=== PATIENT | male | born 1985 | race Caucasian/White ===

== ENCOUNTER 2016-07-03 09:17 | Emergency (ER) | payer SELFPAY ==
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
[2016-07-03] MEDS ORDERED: Permethrin 5% CREAM* 1 APPLIC TUBE TOPICAL ONE (10:02)
[2016-07-03 10:37] VITALS: BP 114/70
== END 2016-07-03 10:21 | disposition home or self-care (01) ==
LOC: ED 09:17
DX: B86 Scabies (principal); F17.210 Nicotine dependence, cigarettes, uncomplicated
CPT/HCPCS: 99281; A9270-GY

== ENCOUNTER 2016-07-04 09:49 | Emergency (ER) | payer SELFPAY ==
[2016-07-04 10:31] VITALS: BP 120/76
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
== END 2016-07-04 11:32 | disposition home or self-care (01) ==
LOC: UCEAST 09:49
DX: N34.2 Other urethritis (principal); Z20.2 Contact with and (suspected) exposure to infections with a predominantly sexual mode of transmission; F17.210 Nicotine dependence, cigarettes, uncomplicated
CPT/HCPCS: 87491; 87591; 99212; G0463

== ENCOUNTER 2016-07-06 18:37 | Emergency (ER) | payer MEDICAID ==
[2016-07-06] MEDS ORDERED: Permethrin 5% CREAM* 1 APPLIC TUBE TOPICAL ONE (20:01)
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
[2016-07-06 20:53] VITALS: BP 117/72
== END 2016-07-06 20:52 | disposition home or self-care (01) ==
LOC: ED 18:37
DX: B86 Scabies (principal); R21 Rash and other nonspecific skin eruption
CPT/HCPCS: 99281; A9270-GY

== ENCOUNTER 2016-07-15 13:30 | Emergency (ER) | payer MEDICAID ==
[2016-07-15 13:34] VITALS: BP 112/59
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
== END 2016-07-15 14:27 | disposition home or self-care (01) ==
LOC: ED 13:30
DX: B86 Scabies (principal); R21 Rash and other nonspecific skin eruption; F17.210 Nicotine dependence, cigarettes, uncomplicated
CPT/HCPCS: 99281

== ENCOUNTER 2017-01-22 23:30 | Emergency (ER) | payer SELFPAY ==
[2017-01-23] MEDS ORDERED: Cyclobenzaprine TAB* 10 MG PO ONE (00:11)
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
[2017-01-23 00:36] VITALS: BP 130/80
== END 2017-01-23 00:36 | disposition home or self-care (01) ==
LOC: ED 23:30
DX: M54.30 Sciatica, unspecified side (principal); M54.9 Dorsalgia, unspecified; F17.210 Nicotine dependence, cigarettes, uncomplicated
CPT/HCPCS: 99282; A9270-GY

== ENCOUNTER 2017-02-03 14:34 | Emergency (ER) | payer OTHER ==
[2017-02-03 14:39] VITALS: BP 122/62
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
== END 2017-02-03 16:18 | disposition home or self-care (01) ==
LOC: ED 14:34
DX: L01.00 Impetigo, unspecified (principal); F17.210 Nicotine dependence, cigarettes, uncomplicated
CPT/HCPCS: 36415; 86703; 99282

== ENCOUNTER 2017-02-04 01:20 | Emergency (ER) | payer OTHER ==
[2017-02-04 01:36] VITALS: BP 132/96
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
== END 2017-02-04 02:20 | disposition home or self-care (01) ==
LOC: ED 01:20
DX: L01.00 Impetigo, unspecified (principal); F17.210 Nicotine dependence, cigarettes, uncomplicated
CPT/HCPCS: 99281

== ENCOUNTER 2022-03-08 07:27 | Inpatient (IN) ==
[2022-03-08] MEDS ORDERED: Midazolam 5 mg/ml concentrated 5 mg/ml 1 ml VIAL INJ ONE (07:29)
[2022-03-08] MEDS ORDERED: Lactated Ringers 1000 ml BAG 1,000 ML IV ONE ×2 (07:33→08:55)
[2022-03-08] MEDS ORDERED: Midazolam 10 mg/10 ml VIAL 1 mg/ml 10 ml VIAL (10 mg) IV SLOW PU ONE ×4 (07:44→08:55)
[2022-03-08 07:57] LABS: ABS Eosinophils 0.1 10^3/ul (0-0.6); ABS Lymphocytes 3.9 10^3/ul (1.0-4.8); ABS Neutrophils 10.8 10^3/ul (1.5-7.7); Eosinophil % 0.6 %; Hematocrit 43 % (42-52); Lymphocyte % 24.7 %; Mean Corpuscular HGB Conc 33 g/dL (31-36); Mean Corpuscular Hemoglobin 31 pg (27-31); Mean Corpuscular Volume 94 fL (80-94); Mean Platelet Volume 9.7 fL (7.4-10.4); Platelet Count 210 10^3/uL (150-450); Red Blood Count 4.53 10^6 /uL (4.18-5.48); Red Cell Distribution Width 14 % (10-15); Venous Bicarbonate HCO3 15.3 mmol/L (24-28); White Blood Count 15.8 10^3/uL (3.5-10.8)
[2022-03-08 08:21] LABS: High Sens Troponin Baseline 10 pg/mL (<20)
[2022-03-08] MEDS ORDERED: Rocuronium 50 mg VIAL 10 mg/ml 5 ml VIAL (50 mg) IV ONE (08:34)
[2022-03-08] MEDS ORDERED: Etomidate 20 mg/10 ml 2 MG/ML 10 ml VIAL IV ONE (08:34)
[2022-03-08] MEDS ORDERED: Propofol 10 mg/ml 100 ML BTL 100 ML ONE (08:35)
[2022-03-08] MEDS ORDERED: Rocuronium 50 mg VIAL 10 mg/ml 5 ml VIAL (50 mg) ONE (08:36)
[2022-03-08 08:40] LABS: ALT 28 U/L (7-52); AST 64 U/L (13-39); Albumin 4.9 g/dL (3.2-5.2); Albumin/Globulin Ratio 1.7 (1-3); Alcohol, S < 13 mg/dL (<13); Alkaline Phosphatase 71 U/L (35-149); Anion Gap 21 mmol/L (2-11); Blood Urea Nitrogen 23 mg/dL (6-24); CO2 Carbon Dioxide 18 mmol/L (22-32); Calcium 10.5 mg/dL (8.6-10.3); Chloride 104 mmol/L (101-111); Creatine Kinase 1439 U/L (10-223); Globulin 2.9 g/dL (2-4); Glucose 83 mg/dL (70-100); Potassium 4.9 mmol/L (3.5-5.0); Sodium 143 mmol/L (135-145); Total Protein 7.8 g/dL (6.4-8.9); eGFR CKD-EPI 62.5 (>60)
[2022-03-08] MEDS ORDERED: Propofol 10 mg/ml 100 ML BTL 100 ML IV SCH (09:00)
[2022-03-08 09:03] LABS: Urine Benzodiazepine Screen Presumptive Positive (None Detect); Urine Cannabinoids Screen Presumptive Positive (None Detect); Urine Opiates Screen Presumptive Positive (None Detect)
[2022-03-08] MEDS ORDERED: Iodixanol (CONTRAST) 320 MG/ML 100 ML SDV IV ONE (09:05)
[2022-03-08] MEDS ORDERED: Piperacillin/Tazobac ADVAN 3.375 GM in NS 0.9% 100 ml BAG 100 ML IV ONE (09:16)
[2022-03-08 09:32] LABS: Acetaminophen < 15 mcg/mL; Salicylate < 2.50 mg/dL (<30)
[2022-03-08] MEDS ORDERED: Lactated Ringers 1000 ml BAG 1,000 ML IV SCH (10:00)
[2022-03-08] MEDS ORDERED: Zosyn per Pharmacy NOTE FOLLOW UP SCH (10:00)
[2022-03-08] MEDS ORDERED: Midazolam 50 MG VIAL IV DRIP 50 ML IV SCH (10:00)
[2022-03-08 10:13] LABS: Urine Sodium Concentration < 18 mmol/L
[2022-03-08 10:29] LABS: Urine Creatinine Concentration 414.98 mg/dL
[2022-03-08 10:46] LABS: PCO2 Arterial 46 mmHg (35-45); PO2 Arterial 182 mmHg (80-100)
[2022-03-08] MEDS: Propofol 10 mg/ml 100 ML BTL 100 ML IV SCH ×5 (12:10→23:46)
[2022-03-08 13:13] LABS: Hematocrit 37 % (42-52); Hemoglobin 12.2 g/dL (14.0-18.0)
[2022-03-08] MEDS: Chlorhexidine MOUTHWASH 0.12% 15 ML UDC TOPICAL SCH ×4 (13:43→23:48)
[2022-03-08] MEDS: Pantoprazole VIAL 40 MG VIAL IV SCH ×2 (13:43→19:51)
[2022-03-08 13:47] LABS: Calcium 8.7 mg/dL (8.6-10.3); Potassium 4.1 mmol/L (3.5-5.0); eGFR CKD-EPI 59.1 (>60)
[2022-03-08] MEDS: NS 0.9% 1000 ml BAG 1,000 ML IV SCH (15:39)
[2022-03-08] MEDS: ZOSYN 3.375 GM Q8H per EXTENDED INFUSION IV SCH ×2 (15:39→23:48)
[2022-03-08] MEDS ORDERED: fentaNYL 100 mcg/2 ml 50 MCG/ML VIAL IV SLOW PU ONE (19:38)
[2022-03-08] MEDS ORDERED: fentaNYL 100 mcg/2 ml 50 MCG/ML VIAL ONE (19:41)
[2022-03-08 20:11] LABS: Blood Urea Nitrogen 18 mg/dL (6-24); CO2 Carbon Dioxide 16 mmol/L (22-32); Calcium 8.8 mg/dL (8.6-10.3); Chloride 108 mmol/L (101-111); Glucose 118 mg/dL (70-100); Sodium 140 mmol/L (135-145); eGFR CKD-EPI 81.2 (>60)
[2022-03-08 20:33] LABS: Creatine Kinase 15685 U/L (10-223)
[2022-03-08 20:35] LABS: Anion Gap 16 mmol/L (2-11)
[2022-03-09 00:50] LABS: Blood Urea Nitrogen 13 mg/dL (6-24); CO2 Carbon Dioxide 15 mmol/L (22-32); Calcium 8.7 mg/dL (8.6-10.3); Chloride 108 mmol/L (101-111); Glucose 98 mg/dL (70-100); Sodium 139 mmol/L (135-145); eGFR CKD-EPI 102.5 (>60)
[2022-03-09 01:02] LABS: Anion Gap 16 mmol/L (2-11)
[2022-03-09 01:06] LABS: Creatine Kinase 18101 U/L (10-223)
[2022-03-09] MEDS: NS 0.9% 1000 ml BAG 1,000 ML IV SCH ×3 (01:33→17:19)
[2022-03-09] MEDS: Propofol 10 mg/ml 100 ML BTL 100 ML IV SCH ×7 (04:46→22:13)
[2022-03-09] MEDS: Chlorhexidine MOUTHWASH 0.12% 15 ML UDC TOPICAL SCH ×5 (04:51→19:42)
[2022-03-09 05:24] LABS: ABS Monocytes 0.9 10^3/ul (0-0.8); Eosinophil % 0.1 %; Hematocrit 38 % (42-52); Hemoglobin 12.5 g/dL (14.0-18.0); Lymphocyte % 5.8 %; Mean Corpuscular HGB Conc 33 g/dL (31-36); Mean Corpuscular Hemoglobin 31 pg (27-31); Mean Corpuscular Volume 94 fL (80-94); Mean Platelet Volume 9.3 fL (7.4-10.4); Platelet Count 129 10^3/uL (150-450); Red Blood Count 4.04 10^6 /uL (4.18-5.48); Red Cell Distribution Width 14 % (10-15)
[2022-03-09 06:29] LABS: Calcium 8.6 mg/dL (8.6-10.3); eGFR CKD-EPI 115.5 (>60)
[2022-03-09 07:22] LABS: Magnesium 1.9 mg/dL (1.9-2.7)
[2022-03-09] MEDS: Pantoprazole VIAL 40 MG VIAL IV SCH ×2 (07:49→19:43)
[2022-03-09] MEDS ORDERED: fentaNYL 100 mcg/2 ml 50 MCG/ML VIAL IV SLOW PU PRN (08:00)
[2022-03-09] MEDS ORDERED: Midazolam 2 mg/2 ml VIAL 1 mg/ml 2 ml VIAL (2 mg) IV SLOW PU PRN ×2 (08:12→10:01)
[2022-03-09] MEDS ORDERED: Lorazepam PYXIS KEY ONE (08:50)
[2022-03-09] MEDS ORDERED: LORazepam 2 mg VIAL 1 ml ONE (08:51)
[2022-03-09] MEDS: ZOSYN 3.375 GM Q8H per EXTENDED INFUSION IV SCH ×3 (08:57→22:40)
[2022-03-09] MEDS: Dexmedetomidine 1,000 MCG in NS 0.9% 250 ml 240 ML IV SCH ×2 (09:11→17:48)
[2022-03-09 09:26] LABS: Urine Appearance Cloudy; Urine Bilirubin Negative (Negative); Urine Blood 2+ (Negative); Urine Color Yellow; Urine Glucose Negative (Negative); Urine Ketones 2+ (Negative); Urine Nitrite Negative (Negative); Urine Protein 1+(30 mg/dL) (Negative); Urine Specific Gravity 1.023 (1.002-1.030); Urine Urobilinogen Negative (Negative)
[2022-03-09 09:57] LABS: Urine Bacteria Absent (Absent); Urine Red Blood Cell 2+(6-10/hpf) (Absent); Urine Squamous Epithelial Cell Present (Absent); Urine White Blood Cell Trace(0-5/hpf) (Absent)
[2022-03-09] MEDS: fentaNYL 100 mcg/2 ml 50 MCG/ML VIAL IV SLOW PU PRN (10:00)
[2022-03-09] MEDS ORDERED: Midazolam 2 mg/2 ml VIAL 1 mg/ml 2 ml VIAL (2 mg) IV SLOW PU ONE (10:00)
[2022-03-09] MEDS ORDERED: Midazolam 2 mg/2 ml VIAL 1 mg/ml 2 ml VIAL (2 mg) ONE (10:01)
[2022-03-09] MEDS ORDERED: fentaNYL 100 mcg/2 ml 50 MCG/ML VIAL ONE (10:01)
[2022-03-09] MEDS ORDERED: Midazolam 5 mg/5 ml VIAL 1 mg/ml 5 ml VIAL (5 mg) IV SLOW PU ONE (10:02)
[2022-03-09] MEDS ORDERED: Rocuronium 50 mg VIAL 10 mg/ml 5 ml VIAL (50 mg) ONE ×2 (10:08→10:11)
[2022-03-09] MEDS ORDERED: Midazolam 5 mg/5 ml VIAL 1 mg/ml 5 ml VIAL (5 mg) ONE (10:11)
[2022-03-09] MEDS: Cisatracurium 100 MG in NS 0.9% 250 ml 200 ML IV SCH ×2 (10:45→20:39)
[2022-03-09] MEDS ORDERED: Rocuronium 50 mg VIAL 10 mg/ml 5 ml VIAL (50 mg) IV ONE (10:54)
[2022-03-09 12:18] LABS: Calcium 8.5 mg/dL (8.6-10.3); Potassium 3.6 mmol/L (3.5-5.0); eGFR CKD-EPI 121.4 (>60)
[2022-03-09] MEDS: KCL 10 MEQ/50 ML IVPREMIX 10 MEQ/50 ML BAG IV SCH ×2 (14:54→16:12)
[2022-03-09] MEDS: Acetaminophen IV 1 GM/100ML 1,000 MG/100 ML BAG IV PRN (17:29)
[2022-03-09 18:14] LABS: PCO2 Arterial 42 mmHg (35-45); PO2 Arterial 83 mmHg (80-100)
[2022-03-09] MEDS: fentaNYL INFUSION 50 mcg/mL VL 2,500 MCG/50 ML VIAL IV SCH (22:16)
[2022-03-10] MEDS: Acetaminophen IV 1 GM/100ML 1,000 MG/100 ML BAG IV PRN ×4 (00:17→22:11)
[2022-03-10] MEDS: Chlorhexidine MOUTHWASH 0.12% 15 ML UDC TOPICAL SCH ×6 (00:19→20:00)
[2022-03-10] MEDS ORDERED: Rocuronium 50 mg VIAL 10 mg/ml 5 ml VIAL (50 mg) IV ONE (00:26)
[2022-03-10] MEDS: Propofol 10 mg/ml 100 ML BTL 100 ML IV SCH ×9 (01:05→23:33)
[2022-03-10] MEDS ORDERED: Midazolam 5 mg/5 ml VIAL 1 mg/ml 5 ml VIAL (5 mg) IV SLOW PU ONE (02:32)
[2022-03-10] MEDS: Cisatracurium 100 MG in NS 0.9% 250 ml 200 ML IV SCH ×3 (04:00→13:37)
[2022-03-10 04:03] LABS: ABS Lymphocytes 0.6 10^3/ul (1.0-4.8); ABS Monocytes 0.5 10^3/ul (0-0.8); ABS Neutrophils 12.3 10^3/ul (1.5-7.7); Eosinophil % 0.2 %; Hematocrit 38 % (42-52); Hemoglobin 12.6 g/dL (14.0-18.0); Lymphocyte % 4.3 %; Mean Corpuscular HGB Conc 33 g/dL (31-36); Mean Corpuscular Hemoglobin 31 pg (27-31); Mean Corpuscular Volume 94 fL (80-94); Mean Platelet Volume 9.8 fL (7.4-10.4); Platelet Count 130 10^3/uL (150-450); Red Blood Count 4.03 10^6 /uL (4.18-5.48); Red Cell Distribution Width 13 % (10-15); White Blood Count 13.4 10^3/uL (3.5-10.8)
[2022-03-10 04:30] LABS: Blood Urea Nitrogen 5 mg/dL (6-24); CO2 Carbon Dioxide 20 mmol/L (22-32); Calcium 7.8 mg/dL (8.6-10.3); Glucose 108 mg/dL (70-100); Magnesium 1.5 mg/dL (1.9-2.7); Sodium 140 mmol/L (135-145); eGFR CKD-EPI 119.9 (>60)
[2022-03-10 04:32] LABS: Chloride 113 mmol/L (101-111)
[2022-03-10 04:36] LABS: CKMB ng/mL 24.4 ng/mL (0.6-6.3)
[2022-03-10 04:47] LABS: Anion Gap 7 mmol/L (2-11)
[2022-03-10 05:21] LABS: Potassium, Whole Blood 3.4 mmol/L (3.4-4.5)
[2022-03-10] MEDS: Erythromycin OPTH OINT APPLIC OINT BOTH EYES SCH ×4 (06:08→21:04)
[2022-03-10] MEDS: NS 0.9% 1000 ml BAG 1,000 ML IV SCH ×2 (07:19)
[2022-03-10] MEDS ORDERED: Potassium Phosphate IV 15 MMOLE in NS 0.9% 250 ml 250 ML IVPB ONE ×2 (07:45→16:18)
[2022-03-10] MEDS: Pantoprazole VIAL 40 MG VIAL IV SCH (07:55)
[2022-03-10] MEDS: ZOSYN 3.375 GM Q8H per EXTENDED INFUSION IV SCH ×4 (07:55→23:38)
[2022-03-10] MEDS: Enoxaparin 40 MG/0.4 ML SYR SUBCUT SCH (07:55)
[2022-03-10] MEDS ORDERED: Magnesium Sulfate 2 gm BAG 2 GM/50 ML BAG IVPB ONE (07:57)
[2022-03-10] MEDS: KCL 20 MEQ/100 ML IVPREMIX 20 MEQ/100 ML BAG IV SCH ×3 (09:04→14:08)
[2022-03-10] MEDS: Lactated Ringers 1000 ml BAG 1,000 ML IV SCH (11:45)
[2022-03-10] MEDS ORDERED: Sulfur Hexaflouride MICROSPHR 25 MG VIAL ONE (12:57)
[2022-03-10 13:51] LABS: HIV 4th Generation Nonreactive (Nonreactive)
[2022-03-10] MEDS: fentaNYL INFUSION 50 mcg/mL VL 2,500 MCG/50 ML VIAL IV SCH ×3 (14:36→21:00)
[2022-03-10 14:45] LABS: Hepatitis B Surface Antigen Nonreactive (Nonreactive)
[2022-03-10 14:50] LABS: Hepatitis A Ab IgM Negative (Negative)
[2022-03-10 14:51] LABS: Hepatitis B Core IgM Nonreactive (Nonreactive)
[2022-03-10 15:02] LABS: Hepatitis C Antibody Negative (Negative)
[2022-03-10] MEDS: Midazolam 2 mg/2 ml VIAL 1 mg/ml 2 ml VIAL (2 mg) IV SLOW PU PRN ×3 (15:06→21:20)
[2022-03-10] MEDS ORDERED: Midazolam 2 mg/2 ml VIAL 1 mg/ml 2 ml VIAL (2 mg) ONE (17:24)
[2022-03-10] MEDS ORDERED: Midazolam 2 mg/2 ml VIAL 1 mg/ml 2 ml VIAL (2 mg) IV SLOW PU ONE (17:27)
[2022-03-10] MEDS: Dexmedetomidine 1,000 MCG in NS 0.9% 250 ml 240 ML IV SCH (20:34)
[2022-03-11] MEDS: Lactated Ringers 1000 ml BAG 1,000 ML IV SCH (01:37)
[2022-03-11] MEDS: Dexmedetomidine 1,000 MCG in NS 0.9% 250 ml 240 ML IV SCH ×4 (02:15→19:13)
[2022-03-11] MEDS: Propofol 10 mg/ml 100 ML BTL 100 ML IV SCH ×8 (02:37→23:35)
[2022-03-11] MEDS: Chlorhexidine MOUTHWASH 0.12% 15 ML UDC TOPICAL SCH ×6 (02:40→20:16)
[2022-03-11 03:15] LABS: ABS Basophils 0.1 10^3/ul (0-0.2); ABS Eosinophils 0.2 10^3/ul (0-0.6); ABS Lymphocytes 1.8 10^3/ul (1.0-4.8); ABS Monocytes 0.6 10^3/ul (0-0.8); ABS Neutrophils 10.1 10^3/ul (1.5-7.7); Eosinophil % 1.7 %; Hematocrit 34 % (42-52); Hemoglobin 11.2 g/dL (14.0-18.0); Lymphocyte % 13.9 %; Mean Corpuscular HGB Conc 33 g/dL (31-36); Mean Corpuscular Hemoglobin 31 pg (27-31); Mean Corpuscular Volume 94 fL (80-94); Mean Platelet Volume 9.3 fL (7.4-10.4); Platelet Count 162 10^3/uL (150-450); Red Blood Count 3.67 10^6 /uL (4.18-5.48); Red Cell Distribution Width 14 % (10-15); White Blood Count 12.7 10^3/uL (3.5-10.8)
[2022-03-11] MEDS: Midazolam 2 mg/2 ml VIAL 1 mg/ml 2 ml VIAL (2 mg) IV SLOW PU PRN ×2 (03:44→22:01)
[2022-03-11 03:57] LABS: Albumin 2.9 g/dL (3.2-5.2); Albumin/Globulin Ratio 1.5 (1-3); Magnesium 1.6 mg/dL (1.9-2.7); Phosphorus 1.6 mg/dL (2.5-5.0); Potassium 3.6 mmol/L (3.5-5.0); Total Bilirubin 0.4 mg/dL (0.2-1.0); Total Protein 4.9 g/dL (6.4-8.9); eGFR CKD-EPI 124.7 (>60)
[2022-03-11] MEDS ORDERED: KCL 10 MEQ/50 ML IVPREMIX 10 MEQ/50 ML BAG IV ONE (05:37)
[2022-03-11] MEDS ORDERED: Magnesium Sulfate 2 gm BAG 2 GM/50 ML BAG IVPB ONE ×3 (05:39→18:30)
[2022-03-11] MEDS ORDERED: Potassium Phosphate IV 15 MMOLE in NS 0.9% 250 ml 250 ML IVPB ONE ×2 (06:00→07:26)
[2022-03-11] MEDS: fentaNYL INFUSION 50 mcg/mL VL 2,500 MCG/50 ML VIAL IV SCH ×3 (06:34→23:32)
[2022-03-11] MEDS: Enoxaparin 40 MG/0.4 ML SYR SUBCUT SCH (07:35)
[2022-03-11] MEDS: ZOSYN 3.375 GM Q8H per EXTENDED INFUSION IV SCH ×3 (07:35→23:03)
[2022-03-11] MEDS: Erythromycin OPTH OINT APPLIC OINT BOTH EYES SCH ×3 (07:50→21:27)
[2022-03-11] MEDS ORDERED: KCL 20 MEQ/100 ML IVPREMIX 20 MEQ/100 ML BAG IV SCH (08:00)
[2022-03-11] MEDS ORDERED: KCL 20 MEQ/100 ML IVPREMIX 20 MEQ/100 ML BAG IV ONE (08:01)
[2022-03-11] MEDS: Pantoprazole VIAL 40 MG VIAL IV SCH (08:07)
[2022-03-11] MEDS ORDERED: fentaNYL INFUSION 50 mcg/mL VL 2,500 MCG/50 ML VIAL IV SCH (08:21)
[2022-03-11] MEDS ORDERED: Succinylcholine 200 mg VIAL 20 mg/ml 10 ml VIAL (200 mg) ONE (16:21)
[2022-03-11] MEDS ORDERED: Rocuronium 50 mg VIAL 10 mg/ml 5 ml VIAL (50 mg) ONE ×2 (16:22→16:30)
[2022-03-11] MEDS ORDERED: Midazolam 10 mg/10 ml VIAL 1 mg/ml 10 ml VIAL (10 mg) ONE (16:25)
[2022-03-11] MEDS ORDERED: Propofol 10 MG/ML 20 ML BTL ONE (16:25)
[2022-03-11] MEDS: fentaNYL 100 mcg/2 ml 50 MCG/ML VIAL IV SLOW PU PRN (17:43)
[2022-03-11 18:21] LABS: Magnesium 1.7 mg/dL (1.9-2.7); Phosphorus 2.1 mg/dL (2.5-5.0); Potassium 3.6 mmol/L (3.5-5.0)
[2022-03-11] MEDS ORDERED: Potassium Phosphate IV 10 MMOLE in NS 0.9% 250 ml 250 ML IVPB ONE (18:30)
[2022-03-11] MEDS: KCL 20 MEQ/100 ML IVPREMIX 20 MEQ/100 ML BAG IV SCH ×2 (19:42→21:53)
[2022-03-11] MEDS ORDERED: Midazolam 5 mg/5 ml VIAL 1 mg/ml 5 ml VIAL (5 mg) IV SLOW PU ONE (22:07)
[2022-03-11] MEDS ORDERED: Midazolam 5 mg/5 ml VIAL 1 mg/ml 5 ml VIAL (5 mg) ONE (22:08)
[2022-03-12] MEDS: Chlorhexidine MOUTHWASH 0.12% 15 ML UDC TOPICAL SCH ×7 (00:27→23:17)
[2022-03-12] MEDS: Dexmedetomidine 1,000 MCG in NS 0.9% 250 ml 240 ML IV SCH ×5 (00:48→23:08)
[2022-03-12] MEDS: Propofol 10 mg/ml 100 ML BTL 100 ML IV SCH ×10 (02:30→23:09)
[2022-03-12 03:33] LABS: ABS Eosinophils 0.3 10^3/ul (0-0.6); ABS Monocytes 0.4 10^3/ul (0-0.8); ABS Neutrophils 9.6 10^3/ul (1.5-7.7); Eosinophil % 2.7 %; Hematocrit 34 % (42-52); Hemoglobin 11.4 g/dL (14.0-18.0); Lymphocyte % 8.9 %; Mean Corpuscular HGB Conc 33 g/dL (31-36); Mean Corpuscular Hemoglobin 31 pg (27-31); Mean Corpuscular Volume 93 fL (80-94); Mean Platelet Volume 8.7 fL (7.4-10.4); Nucleated Red Blood Cells % 0.1; Platelet Count 171 10^3/uL (150-450); Red Blood Count 3.67 10^6 /uL (4.18-5.48); Red Cell Distribution Width 14 % (10-15); White Blood Count 11.4 10^3/uL (3.5-10.8)
[2022-03-12 04:45] LABS: Albumin 2.7 g/dL (3.2-5.2); Albumin/Globulin Ratio 1.2 (1-3); Calcium 7.8 mg/dL (8.6-10.3); Globulin 2.2 g/dL (2-4); Magnesium 1.7 mg/dL (1.9-2.7); Phosphorus 2.7 mg/dL (2.5-5.0); Potassium 3.9 mmol/L (3.5-5.0); Total Bilirubin 0.4 mg/dL (0.2-1.0); Total Protein 4.9 g/dL (6.4-8.9); eGFR CKD-EPI 125.2 (>60)
[2022-03-12] MEDS: Midazolam 2 mg/2 ml VIAL 1 mg/ml 2 ml VIAL (2 mg) IV SLOW PU PRN ×5 (05:00→14:24)
[2022-03-12] MEDS ORDERED: KCL 20 MEQ/100 ML IVPREMIX 20 MEQ/100 ML BAG IV ONE ×2 (05:05→09:29)
[2022-03-12] MEDS ORDERED: Magnesium Sulfate 2 gm BAG 2 GM/50 ML BAG IVPB ONE (05:05)
[2022-03-12] MEDS ORDERED: Midazolam 5 mg/5 ml VIAL 1 mg/ml 5 ml VIAL (5 mg) ONE (05:48)
[2022-03-12] MEDS ORDERED: Midazolam 5 mg/5 ml VIAL 1 mg/ml 5 ml VIAL (5 mg) IV SLOW PU ONE ×2 (06:00→10:21)
[2022-03-12] MEDS: ZOSYN 3.375 GM Q8H per EXTENDED INFUSION IV SCH ×3 (07:13→23:17)
[2022-03-12] MEDS: Enoxaparin 40 MG/0.4 ML SYR SUBCUT SCH (07:17)
[2022-03-12] MEDS ORDERED: Potassium Chlor 20 meq TAB.ER PO ONE (08:22)
[2022-03-12] MEDS: Erythromycin OPTH OINT APPLIC OINT BOTH EYES SCH ×3 (09:16→19:41)
[2022-03-12] MEDS: Pantoprazole VIAL 40 MG VIAL IV SCH (09:16)
[2022-03-12] MEDS ORDERED: PHENobarbital IV 500 MG in NS 0.9% 100 ml BAG 100 ML IVPB ONE (10:05)
[2022-03-12] MEDS: fentaNYL INFUSION 50 mcg/mL VL 2,500 MCG/50 ML VIAL IV SCH ×2 (11:16→12:42)
[2022-03-12] MEDS: fentaNYL 100 mcg/2 ml 50 MCG/ML VIAL IV SLOW PU PRN (14:24)
[2022-03-12] MEDS ORDERED: NS 0.9% IVPB ONE ×2 (15:00→19:44)
[2022-03-12] MEDS ORDERED: PHENOBARBITAL IVPB ONE ×2 (15:00→19:44)
[2022-03-13] MEDS: Propofol 10 mg/ml 100 ML BTL 100 ML IV SCH ×8 (01:54→22:21)
[2022-03-13] MEDS: Chlorhexidine MOUTHWASH 0.12% 15 ML UDC TOPICAL SCH ×6 (04:47→19:18)
[2022-03-13] MEDS: Dexmedetomidine 1,000 MCG in NS 0.9% 250 ml 240 ML IV SCH ×4 (04:51→21:35)
[2022-03-13 05:14] LABS: ABS Eosinophils 0.4 10^3/ul (0-0.6); ABS Lymphocytes 1.4 10^3/ul (1.0-4.8); ABS Monocytes 0.4 10^3/ul (0-0.8); ABS Neutrophils 5.5 10^3/ul (1.5-7.7); Eosinophil % 5.7 %; Hematocrit 34 % (42-52); Lymphocyte % 17.8 %; Mean Corpuscular HGB Conc 33 g/dL (31-36); Mean Corpuscular Hemoglobin 30 pg (27-31); Mean Corpuscular Volume 93 fL (80-94); Mean Platelet Volume 8.4 fL (7.4-10.4); Platelet Count 181 10^3/uL (150-450); Red Blood Count 3.61 10^6 /uL (4.18-5.48); Red Cell Distribution Width 14 % (10-15); White Blood Count 7.8 10^3/uL (3.5-10.8)
[2022-03-13 05:36] LABS: Calcium 7.9 mg/dL (8.6-10.3); Magnesium 1.6 mg/dL (1.9-2.7); Potassium 3.5 mmol/L (3.5-5.0); eGFR CKD-EPI 127.7 (>60)
[2022-03-13] MEDS ORDERED: Magnesium Sulfate 2 gm BAG 2 GM/50 ML BAG IVPB ONE (05:36)
[2022-03-13] MEDS: fentaNYL INFUSION 50 mcg/mL VL 2,500 MCG/50 ML VIAL IV SCH ×3 (05:50→15:32)
[2022-03-13] MEDS: KCL 20 MEQ/100 ML IVPREMIX 20 MEQ/100 ML BAG IV SCH ×5 (06:11→19:18)
[2022-03-13] MEDS: Enoxaparin 40 MG/0.4 ML SYR SUBCUT SCH (07:54)
[2022-03-13] MEDS: Pantoprazole VIAL 40 MG VIAL IV SCH (07:55)
[2022-03-13] MEDS: ZOSYN 3.375 GM Q8H per EXTENDED INFUSION IV SCH ×3 (08:17→22:13)
[2022-03-13] MEDS ORDERED: fentaNYL INFUSION 50 mcg/mL VL 2,500 MCG/50 ML VIAL IV SCH (09:13)
[2022-03-13] MEDS: PHENobarbital IV 65 MG/ML 1 ml VIAL IV SCH ×2 (09:48→20:57)
[2022-03-13] MEDS ORDERED: Rocuronium 50 mg VIAL 10 mg/ml 5 ml VIAL (50 mg) ONE (10:19)
[2022-03-13] MEDS ORDERED: Acetylcysteine INHALATION SOL 200 MG/ML NEB.SOLN 10 ML INH ONE (10:24)
[2022-03-13] MEDS ORDERED: Furosemide 40 mg/4 ml IV VIAL ONE (10:38)
[2022-03-13] MEDS ORDERED: Furosemide 40 mg/4 ml IV VIAL IV SLOW PU ONE (10:39)
[2022-03-13] MEDS: Erythromycin OPTH OINT APPLIC OINT BOTH EYES SCH ×3 (10:52→20:17)
[2022-03-13] MEDS ORDERED: Morphine 4 MG/ML VIAL (1 ml) IV ONE (10:58)
[2022-03-13] MEDS ORDERED: Rocuronium 50 mg VIAL 10 mg/ml 5 ml VIAL (50 mg) IV ONE (10:59)
[2022-03-13] MEDS ORDERED: Morphine 4 MG/ML VIAL (1 ml) ONE (11:01)
[2022-03-13] MEDS ORDERED: Acetaminophen IV 1 GM/100ML 1,000 MG/100 ML BAG IV PRN (11:10)
[2022-03-13] MEDS: Acetaminophen IV 1 GM/100ML 1,000 MG/100 ML BAG IV PRN (11:13)
[2022-03-13 12:19] LABS: ABS Eosinophils 0.1 10^3/ul (0-0.6); ABS Lymphocytes 0.5 10^3/ul (1.0-4.8); ABS Monocytes 0.5 10^3/ul (0-0.8); ABS Neutrophils 9.9 10^3/ul (1.5-7.7); Eosinophil % 0.5 %; Hematocrit 36 % (42-52); Lymphocyte % 4.7 %; Mean Corpuscular HGB Conc 34 g/dL (31-36); Mean Corpuscular Hemoglobin 31 pg (27-31); Mean Corpuscular Volume 91 fL (80-94); Mean Platelet Volume 8.6 fL (7.4-10.4); Platelet Count 183 10^3/uL (150-450); Red Blood Count 3.94 10^6 /uL (4.18-5.48); Red Cell Distribution Width 13 % (10-15); White Blood Count 11.1 10^3/uL (3.5-10.8)
[2022-03-13 12:38] LABS: Urine Potassium Concentration 21.4 mmol/L
[2022-03-13 12:43] LABS: PCO2 Arterial 29 mmHg (35-45); PO2 Arterial 107 mmHg (80-100)
[2022-03-13 13:05] LABS: Urine Osmo 255 mOsm/kg (150-1150)
[2022-03-13 13:05] LABS: Albumin 3.1 g/dL (3.2-5.2); Albumin/Globulin Ratio 1.2 (1-3); Globulin 2.5 g/dL (2-4); Potassium 3.4 mmol/L (3.5-5.0); Total Bilirubin 0.4 mg/dL (0.2-1.0); Total Protein 5.6 g/dL (6.4-8.9); eGFR CKD-EPI 122.5 (>60)
[2022-03-13] MEDS: Midazolam 2 mg/2 ml VIAL 1 mg/ml 2 ml VIAL (2 mg) IV SLOW PU PRN ×3 (14:22→22:20)
[2022-03-14] MEDS: Midazolam 2 mg/2 ml VIAL 1 mg/ml 2 ml VIAL (2 mg) IV SLOW PU PRN ×11 (00:37→16:24)
[2022-03-14] MEDS: Chlorhexidine MOUTHWASH 0.12% 15 ML UDC TOPICAL SCH ×6 (00:42→19:13)
[2022-03-14] MEDS: Propofol 10 mg/ml 100 ML BTL 100 ML IV SCH ×9 (01:06→22:11)
[2022-03-14] MEDS: Dexmedetomidine 1,000 MCG in NS 0.9% 250 ml 240 ML IV SCH ×4 (03:21→19:12)
[2022-03-14 04:54] LABS: Hematocrit 34 % (42-52); Hemoglobin 11.2 g/dL (14.0-18.0); Mean Corpuscular HGB Conc 33 g/dL (31-36); Mean Corpuscular Hemoglobin 31 pg (27-31); Mean Corpuscular Volume 92 fL (80-94); Mean Platelet Volume 8.3 fL (7.4-10.4); Platelet Count 179 10^3/uL (150-450); Red Blood Count 3.67 10^6 /uL (4.18-5.48); Red Cell Distribution Width 13 % (10-15)
[2022-03-14] MEDS: fentaNYL INFUSION 50 mcg/mL VL 2,500 MCG/50 ML VIAL IV SCH ×2 (05:02→17:41)
[2022-03-14 05:38] LABS: Calcium 8.3 mg/dL (8.6-10.3); Magnesium 1.7 mg/dL (1.9-2.7); Phosphorus 3.8 mg/dL (2.5-5.0); Potassium 3.7 mmol/L (3.5-5.0); eGFR CKD-EPI 128.3 (>60)
[2022-03-14] MEDS ORDERED: Magnesium Sulfate 2 gm BAG 2 GM/50 ML BAG IVPB ONE (05:50)
[2022-03-14] MEDS ORDERED: KCL 20 MEQ/100 ML IVPREMIX 20 MEQ/100 ML BAG IV ONE ×2 (05:51→08:30)
[2022-03-14] MEDS: ZOSYN 3.375 GM Q8H per EXTENDED INFUSION IV SCH ×3 (08:02→22:23)
[2022-03-14] MEDS: Enoxaparin 40 MG/0.4 ML SYR SUBCUT SCH (08:10)
[2022-03-14] MEDS: Pantoprazole VIAL 40 MG VIAL IV SCH (08:11)
[2022-03-14] MEDS: Erythromycin OPTH OINT APPLIC OINT BOTH EYES SCH ×3 (08:12→21:56)
[2022-03-14] MEDS: PHENobarbital IV 65 MG/ML 1 ml VIAL IV SCH ×3 (08:12→21:23)
[2022-03-14] MEDS: fentaNYL 100 mcg/2 ml 50 MCG/ML VIAL IV SLOW PU PRN ×7 (08:15→21:07)
[2022-03-14] MEDS ORDERED: PHENobarbital IV 65 MG/ML 1 ml VIAL IV ONE (09:04)
[2022-03-14] MEDS: Midazolam 5 mg/5 ml VIAL 1 mg/ml 5 ml VIAL (5 mg) IV SLOW PU PRN ×2 (18:12→19:54)
[2022-03-14] MEDS ORDERED: Midazolam 2 mg/2 ml VIAL 1 mg/ml 2 ml VIAL (2 mg) IV SLOW PU ONE (20:32)
[2022-03-14] MEDS ORDERED: Midazolam 5 mg/5 ml VIAL 1 mg/ml 5 ml VIAL (5 mg) ONE (21:09)
[2022-03-14] MEDS: Midazolam 50 MG VIAL IV DRIP 50 ML IV SCH (21:30)
[2022-03-14] MEDS ORDERED: Midazolam 5 mg/5 ml VIAL 1 mg/ml 5 ml VIAL (5 mg) IV SLOW PU ONE ×2 (22:00)
[2022-03-15] MEDS: Chlorhexidine MOUTHWASH 0.12% 15 ML UDC TOPICAL SCH ×5 (00:20→18:12)
[2022-03-15] MEDS: Dexmedetomidine 1,000 MCG in NS 0.9% 250 ml 240 ML IV SCH ×5 (00:24→23:35)
[2022-03-15] MEDS: Midazolam 5 mg/5 ml VIAL 1 mg/ml 5 ml VIAL (5 mg) IV SLOW PU PRN ×3 (00:25→02:35)
[2022-03-15] MEDS: fentaNYL 100 mcg/2 ml 50 MCG/ML VIAL IV SLOW PU PRN ×5 (00:26→23:35)
[2022-03-15] MEDS: Propofol 10 mg/ml 100 ML BTL 100 ML IV SCH ×4 (01:40→08:30)
[2022-03-15] MEDS: Midazolam 50 MG VIAL IV DRIP 50 ML IV SCH ×2 (02:35→07:58)
[2022-03-15] MEDS: fentaNYL INFUSION 50 mcg/mL VL 2,500 MCG/50 ML VIAL IV SCH (05:02)
[2022-03-15 06:05] LABS: Hematocrit 35 % (42-52); Hemoglobin 11.7 g/dL (14.0-18.0); Mean Corpuscular HGB Conc 34 g/dL (31-36); Mean Corpuscular Hemoglobin 31 pg (27-31); Mean Corpuscular Volume 92 fL (80-94); Mean Platelet Volume 8.3 fL (7.4-10.4); Platelet Count 237 10^3/uL (150-450); Red Blood Count 3.77 10^6 /uL (4.18-5.48); Red Cell Distribution Width 13 % (10-15); White Blood Count 7.9 10^3/uL (3.5-10.8)
[2022-03-15 06:55] LABS: Calcium 8.6 mg/dL (8.6-10.3); Magnesium 1.7 mg/dL (1.9-2.7); Phosphorus 4.3 mg/dL (2.5-5.0); Potassium 4.3 mmol/L (3.5-5.0)
[2022-03-15] MEDS ORDERED: Magnesium Sulfate IV 3 GM in NS 0.9% 100 ml BAG 100 ML IVPB ONE (08:20)
[2022-03-15 08:28] LABS: ABS Eosinophils 0.4 10^3/ul (0-0.6); ABS Lymphocytes 1.6 10^3/ul (1.0-4.8); ABS Monocytes 0.7 10^3/ul (0-0.8); ABS Neutrophils 5.2 10^3/ul (1.5-7.7); Eosinophil % 5.5 %; Lymphocyte % 20.3 %
[2022-03-15] MEDS: PHENobarbital IV 65 MG/ML 1 ml VIAL IV SCH (08:39)
[2022-03-15] MEDS: ZOSYN 3.375 GM Q8H per EXTENDED INFUSION IV SCH (09:07)
[2022-03-15] MEDS: Pantoprazole VIAL 40 MG VIAL IV SCH (09:20)
[2022-03-15] MEDS: Enoxaparin 40 MG/0.4 ML SYR SUBCUT SCH (09:21)
[2022-03-15] MEDS: Erythromycin OPTH OINT APPLIC OINT BOTH EYES SCH ×2 (09:22→14:48)
[2022-03-15] MEDS ORDERED: Ketamine HCL 50 mg/ml 10 ml VIAL (500 MG) IV PRN (11:29)
[2022-03-15] MEDS ORDERED: PHENobarbital IV 65 MG/ML 1 ml VIAL IV SCH (14:00)
[2022-03-15] MEDS ORDERED: fentaNYL 100 mcg/2 ml 50 MCG/ML VIAL IV SLOW PU PRN (16:15)
[2022-03-15] MEDS: cefTRIAXone 1 gm/50 mL D5W 1 GM/50 ML BAG IV SCH (17:06)
[2022-03-15] MEDS ORDERED: Midazolam 2 mg/2 ml VIAL 1 mg/ml 2 ml VIAL (2 mg) ONE (17:12)
[2022-03-15] MEDS: Midazolam 2 mg/2 ml VIAL 1 mg/ml 2 ml VIAL (2 mg) IV SLOW PU PRN ×2 (17:17→21:17)
[2022-03-15] MEDS: D5LR 1000 ml BAG 1,000 ML IV SCH (17:30)
[2022-03-15] MEDS: PHENobarbital IV 260 MG in NS 0.9% 100 ml BAG 100 ML IVPB SCH (17:37)
[2022-03-15] MEDS ORDERED: fentaNYL 100 mcg/2 ml 50 MCG/ML VIAL ONE (19:30)
[2022-03-15] MEDS ORDERED: Haloperidol 5 mg/ml SDV IV/IM 5 MG/ML AMP IV SLOW PU ONE (21:41)
[2022-03-16] MEDS: Midazolam 2 mg/2 ml VIAL 1 mg/ml 2 ml VIAL (2 mg) IV SLOW PU PRN ×3 (00:12→03:57)
[2022-03-16] MEDS: fentaNYL 100 mcg/2 ml 50 MCG/ML VIAL IV SLOW PU PRN ×2 (01:14→03:22)
[2022-03-16] MEDS: PHENobarbital IV 260 MG in NS 0.9% 100 ml BAG 100 ML IVPB SCH ×2 (01:30→11:36)
[2022-03-16] MEDS ORDERED: Haloperidol 5 mg/ml SDV IV/IM 5 MG/ML AMP IV SLOW PU PRN (01:35)
[2022-03-16] MEDS: Dexmedetomidine 1,000 MCG in NS 0.9% 250 ml 240 ML IV SCH (04:42)
[2022-03-16] MEDS ORDERED: Acetaminophen IV 1 GM/100ML 1,000 MG/100 ML BAG IV PRN (05:08)
[2022-03-16 05:30] LABS: Hematocrit 34 % (42-52); Hemoglobin 11.4 g/dL (14.0-18.0); Mean Corpuscular HGB Conc 34 g/dL (31-36); Mean Corpuscular Hemoglobin 31 pg (27-31); Mean Corpuscular Volume 91 fL (80-94); Mean Platelet Volume 8.2 fL (7.4-10.4); Platelet Count 284 10^3/uL (150-450); Red Blood Count 3.72 10^6 /uL (4.18-5.48); Red Cell Distribution Width 13 % (10-15); White Blood Count 10.4 10^3/uL (3.5-10.8)
[2022-03-16] MEDS: D5LR 1000 ml BAG 1,000 ML IV SCH (05:49)
[2022-03-16 05:58] LABS: Blood Urea Nitrogen 12 mg/dL (6-24); CO2 Carbon Dioxide 23 mmol/L (22-32); Calcium 8.2 mg/dL (8.6-10.3); Chloride 107 mmol/L (101-111); Glucose 107 mg/dL (70-100); Magnesium 1.6 mg/dL (1.9-2.7); Sodium 139 mmol/L (135-145); eGFR CKD-EPI 128.3 (>60)
[2022-03-16 06:03] LABS: Anion Gap 9 mmol/L (2-11)
[2022-03-16] MEDS ORDERED: Magnesium Sulf 4 GM/100 ML IV 4,000 MG/100 ML BAG IVPB ONE (06:20)
[2022-03-16 07:23] LABS: Phosphorus 2.6 mg/dL (2.5-5.0); Potassium Redraw 3.4 mmol/L (3.5-5.0)
[2022-03-16] MEDS: KCL 20 MEQ/100 ML IVPREMIX 20 MEQ/100 ML BAG IV SCH ×3 (08:31→14:00)
[2022-03-16] MEDS: Enoxaparin 40 MG/0.4 ML SYR SUBCUT SCH (08:31)
[2022-03-16] MEDS: Pantoprazole VIAL 40 MG VIAL IV SCH (08:31)
[2022-03-16 09:42] LABS: Creatine Kinase 1776 U/L (10-223)
[2022-03-16] MEDS: PHENobarbital IV 130 MG in NS 0.9% 100 ml BAG 100 ML IVPB SCH ×2 (11:15→19:24)
[2022-03-16] MEDS ORDERED: Magnesium Sulfate 2 gm BAG 2 GM/50 ML BAG IVPB ONE (14:55)
[2022-03-16] MEDS: cefTRIAXone 1 gm/50 mL D5W 1 GM/50 ML BAG IV SCH (16:31)
[2022-03-17 05:39] LABS: Hematocrit 38 % (42-52); Hemoglobin 12.6 g/dL (14.0-18.0); Mean Corpuscular HGB Conc 34 g/dL (31-36); Mean Corpuscular Hemoglobin 31 pg (27-31); Mean Corpuscular Volume 92 fL (80-94); Mean Platelet Volume 7.9 fL (7.4-10.4); Platelet Count 409 10^3/uL (150-450); Red Cell Distribution Width 13 % (10-15); White Blood Count 13.7 10^3/uL (3.5-10.8)
[2022-03-17 06:14] LABS: Calcium 8.4 mg/dL (8.6-10.3); Magnesium 1.9 mg/dL (1.9-2.7); Phosphorus 2.6 mg/dL (2.5-5.0); Potassium 3.5 mmol/L (3.5-5.0); eGFR CKD-EPI 128.3 (>60)
[2022-03-17] MEDS ORDERED: NORMOSOL-R pH 7.4 1000 mL BAG 1,000 ML IV SCH (07:00)
[2022-03-17] MEDS: KCL 20 MEQ/100 ML IVPREMIX 20 MEQ/100 ML BAG IV SCH ×2 (08:04→10:25)
[2022-03-17] MEDS: Enoxaparin 40 MG/0.4 ML SYR SUBCUT SCH (08:12)
[2022-03-17] MEDS ORDERED: NS 0.9% IVPB SCH (09:00)
[2022-03-17] MEDS ORDERED: PHENOBARBITAL IVPB SCH (09:00)
[2022-03-17] MEDS ORDERED: PHENobarbital IV 65 MG/ML 1 ml VIAL IV SCH (09:00)
[2022-03-17 10:15] LABS: C Reactive Protein 51.17 mg/L (<8.01)
[2022-03-17] MEDS ORDERED: PHENobarbital IV 65 MG/ML 1 ml VIAL ONE (10:17)
[2022-03-17] MEDS: Pantoprazole VIAL 40 MG VIAL IV SCH (10:25)
[2022-03-17] MEDS ORDERED: cloNIDine 0.1 MG PATCH 0.1 MG/24 HR 7 DAY PATCH TRANSDERM SCH (11:00)
[2022-03-17] MEDS: cefTRIAXone 1 gm/50 mL D5W 1 GM/50 ML BAG IV SCH (17:05)
[2022-03-17] MEDS: PHENobarbital IV 65 MG/ML 1 ml VIAL IV SCH (21:10)
[2022-03-18 04:00] LABS: Hematocrit 36 % (42-52); Hemoglobin 11.5 g/dL (14.0-18.0); Mean Corpuscular HGB Conc 32 g/dL (31-36); Mean Corpuscular Hemoglobin 30 pg (27-31); Mean Corpuscular Volume 91 fL (80-94); Mean Platelet Volume 7.5 fL (7.4-10.4); Platelet Count 400 10^3/uL (150-450); Red Cell Distribution Width 13 % (10-15); White Blood Count 13.5 10^3/uL (3.5-10.8)
[2022-03-18 04:14] LABS: ABS Eosinophils 0.1 10^3/ul (0-0.6); ABS Lymphocytes 2.6 10^3/ul (1.0-4.8); ABS Monocytes 0.9 10^3/ul (0-0.8); ABS Neutrophils 9.8 10^3/ul (1.5-7.7); Lymphocyte % 19.4 %
[2022-03-18 04:27] LABS: Calcium 8.3 mg/dL (8.6-10.3); Potassium 3.3 mmol/L (3.5-5.0)
[2022-03-18] MEDS: KCL 20 MEQ/100 ML IVPREMIX 20 MEQ/100 ML BAG IV SCH ×3 (05:37→10:34)
[2022-03-18 05:38] LABS: Magnesium 1.7 mg/dL (1.9-2.7)
[2022-03-18] MEDS ORDERED: Magnesium Sulfate 2 gm BAG 2 GM/50 ML BAG IVPB ONE (07:21)
[2022-03-18] MEDS ORDERED: Potassium Phosphate IV 15 MMOLE in NS 0.9% 250 ml 250 ML IVPB ONE (08:00)
[2022-03-18] MEDS ORDERED: cloNIDine 0.2 MG PATCH 0.2 MG/24 HR 7 DAY PATCH TRANSDERM SCH (08:00)
[2022-03-18] MEDS: PHENobarbital IV 65 MG/ML 1 ml VIAL IV SCH ×2 (08:31→20:58)
[2022-03-18] MEDS: Enoxaparin 40 MG/0.4 ML SYR SUBCUT SCH (08:31)
[2022-03-18] MEDS: Pantoprazole VIAL 40 MG VIAL IV SCH (08:31)
[2022-03-18] MEDS: OLANZapine 10 mg TAB*ODT PO SCH (11:37)
[2022-03-18] MEDS ORDERED: Thiamine 100 MG/ML 2 ml VIAL 100 MG in NS 0.9% 50 ML 50 ML IV SCH (12:00)
[2022-03-19 05:36] LABS: ABS Basophils 0.1 10^3/ul (0-0.2); ABS Eosinophils 0.4 10^3/ul (0-0.6); ABS Lymphocytes 2.4 10^3/ul (1.0-4.8); ABS Monocytes 0.7 10^3/ul (0-0.8); ABS Neutrophils 7.9 10^3/ul (1.5-7.7); Eosinophil % 3.2 %; Hematocrit 35 % (42-52); Hemoglobin 11.5 g/dL (14.0-18.0); Lymphocyte % 20.8 %; Mean Corpuscular HGB Conc 34 g/dL (31-36); Mean Corpuscular Hemoglobin 31 pg (27-31); Mean Corpuscular Volume 91 fL (80-94); Mean Platelet Volume 7.3 fL (7.4-10.4); Nucleated Red Blood Cells % 0.1; Platelet Count 427 10^3/uL (150-450); Red Blood Count 3.79 10^6 /uL (4.18-5.48); Red Cell Distribution Width 13 % (10-15); White Blood Count 11.4 10^3/uL (3.5-10.8)
[2022-03-19 06:31] LABS: Calcium 8.6 mg/dL (8.6-10.3); Magnesium 1.8 mg/dL (1.9-2.7); Potassium 3.7 mmol/L (3.5-5.0)
[2022-03-19 06:37] LABS: Phosphorus 3.3 mg/dL (2.5-5.0); eGFR CKD-EPI 123.5 (>60)
[2022-03-19] MEDS ORDERED: Magnesium Sulfate 2 gm BAG 2 GM/50 ML BAG IVPB ONE (07:08)
[2022-03-19] MEDS: OLANZapine 10 mg TAB*ODT PO SCH (07:47)
[2022-03-19] MEDS: Enoxaparin 40 MG/0.4 ML SYR SUBCUT SCH (07:47)
[2022-03-19] MEDS: Pantoprazole VIAL 40 MG VIAL IV SCH (07:48)
[2022-03-19] MEDS ORDERED: PHENobarbital IV 65 MG/ML 1 ml VIAL IV SCH (09:00)
[2022-03-19 11:14] VITALS: BP 121/73
== END 2022-03-19 14:10 | DRG 812 ==
LOC: ED 07:27 → EDHOLD 11:14 → ICU 11:41
PROVIDERS: ADMIT Internal Medicine Critical Care Medicine; ATTEND Internal Medicine Critical Care Medicine